=== PATIENT | female | born 1950 | race Caucasian/White ===

== ENCOUNTER 2019-06-23 18:18 | Inpatient (IN) | payer MEDICARE ==
[~2019-06-23] VITALS: Ht 167.6 cm; Wt 79.8 kg
[2019-06-23 19:34] LABS: BASOPHILS # (AUTO) 0.06 x10^3/uL (0-0.1); BASOPHILS % (AUTO) 1 % (0-1); EOSINOPHILS # (AUTO) 0.12 x10^3/uL (0-0.4); EOSINOPHILS % (AUTO) 1 % (1-7); LYMPHOCYTES # (AUTO) 2.79 x10^3/uL (1-3.4); LYMPHOCYTES % (AUTO) 25 % (22-44); MD MORPH REVIEW ONLY; MEAN CORPUSCULAR HEMOGLOBIN 21.6 pg (27.0-34.8); MEAN CORPUSCULAR VOLUME 76.2 fL (80-100); MEAN PLATELET VOLUME 6.8 fL (7.4-10.4); MONOCYTES # (AUTO) 1.02 x10^3/uL (0.2-0.8); MONOCYTES % (AUTO) 9 % (2-9); NEUTROPHILS % (AUTO) 64 % (42-75); PLATELET COUNT 481 x10^3/uL (130-400); RED BLOOD COUNT 4.61 x10^6/uL (3.82-5.3); RED CELL DISTRIBUTION WIDTH 18.6 % (9.6-15.2)
[2019-06-23 19:38] LABS: ALANINE AMINOTRANSFERASE 11 U/L (12-78); ALBUMIN 2.3 g/dL (3.4-5.0); ANION GAP 8 mmol/L (5-15); CALCIUM 8.7 mg/dL (8.5-10.1); CHLORIDE 107 mmol/L (98-107); CREATININE 0.74 mg/dL (0.55-1.02)
[2019-06-23 19:40] LABS: ALKALINE PHOSPHATASE 91 U/L (45-117); BILIRUBIN,TOTAL 0.3 mg/dL (0.2-1.0); TOTAL PROTEIN 6.7 g/dL (6.4-8.2)
[2019-06-23 19:46] LABS: MEAN CORPUSCULAR HGB CONC 28.3 g/dL (32.4-35.8)
[2019-06-23 19:47] LABS: ANISOCYTOSIS 1+; MICROCYTOSIS 1+
[2019-06-23 19:48] LABS: HYPOCHROMIA 2+; OVALOCYTES 1+; POLYCHROMASIA 1+
[2019-06-23 19:49] LABS: <PLATELET ESTIMATE> INCREASED; <PLT MORPHOLOGY> NORMAL PLT MORPH
[2019-06-23] MEDS ORDERED: SODIUM CHLORIDE 0.9% 1,000 ML IV ONE (19:51)
[2019-06-23] MEDS ORDERED: SODIUM CHLORIDE FLUSH 10ML SYR IVF ONE (20:00)
--- NOTE | 2019-06-23 20:02 | NUR ---
PT CAME IN CO OF ABD PAIN "I THINK I HAVE A SMALL BOWEL OBSTRUCTION". PT HAS A POSITIVE STOOL OCCULT TEST THAT WAS DONE BY MD AT BEDSIDE.
[2019-06-23 20:15] LABS: % IRON SATURATION 8 % (20-55); IRON LEVEL 18 mcg/dL (50-170); TOTAL IRON BINDING CAPACITY 215 mcg/dL (250-450)
[2019-06-23 20:16] LABS: INTERNATIONAL NORMALIZED RATIO 1.13 (0.93-1.1)
--- NOTE | 2019-06-23 20:26 | NUR ---
Janet earl in [facility] - 06/23/19 at 2041 by SEAN PT RESTING IN [facility]. REPORTS PAIN AND NAUSEA IMPROVEMENT
[2019-06-23 20:28] LABS: CULTURE INDICATED? YES; MICROSCOPIC INDICATED
--- NOTE | 2019-06-23 20:41 | NUR ---
PT IN CT AT THIS TIME
[2019-06-23] MEDS ORDERED: OMNIPAQUE 350 MG/ML, 100ML BOTTLE ONE (20:47)
--- NOTE | 2019-06-23 21:06 | NUR ---
PT RESTING IN [facility]. TALKING ON PHONE WITH . TBADM. EDUCATED ON PLAN OF CARE
[2019-06-23] MEDS ORDERED: LISI-170 PO (22:00)
[2019-06-23] MEDS ORDERED: LOVA40TA2 PO (22:00)
[2019-06-23] MEDS ORDERED: AMLO10TA8 PO (22:00)
[2019-06-23] MEDS ORDERED: ATEN50TA41 PO (22:00)
[2019-06-23] MEDS ORDERED: DIPH25CA61 PO (22:09)
[2019-06-23] MEDS ORDERED: ASPI325T17 PO (22:18)
[2019-06-23] MEDS ORDERED: OMEP20TA62 PO (22:20)
[2019-06-23 22:47] VITALS: BP 142/73
[2019-06-23] MEDS ORDERED: HYDROcodone/APAP 5/325 TABLET PO PRN (23:00)
[2019-06-23] MEDS ORDERED: ENOXAPARIN 40 MG/0.4 ML SQ SCH (23:00)
[2019-06-23] MEDS ORDERED: ACETAMINOPHEN 325 MG TABLET PO PRN (23:00)
[2019-06-23] MEDS ORDERED: DIPHENHYDRAMINE 25 MG CAPSULE PO SCH (23:00)
[2019-06-23] MEDS: LACTATED RINGERS 1,000 ML IV SCH (23:35)
[2019-06-23] MEDS: morphine SULFATE 10 MG/ML, 1ML IVPush PRN (23:35)
[2019-06-24 01:06] VITALS: BP 131/68
[2019-06-24] MEDS: morphine SULFATE 10 MG/ML, 1ML IVPush PRN ×3 (05:31→16:06)
[2019-06-24] MEDS: OMEPRAZOLE 20 MG CAPSULE.DR PO SCH (05:31)
[2019-06-24 06:34] LABS: ANION GAP 8 mmol/L (5-15); CHLORIDE 108 mmol/L (98-107); CREATININE 0.61 mg/dL (0.55-1.02)
[2019-06-24 07:16] LABS: MEAN CORPUSCULAR HEMOGLOBIN 21.7 pg (27.0-34.8); MEAN CORPUSCULAR HGB CONC 30.3 g/dL (32.4-35.8); MEAN CORPUSCULAR VOLUME 71.6 fL (80-100); PLATELET COUNT 440 x10^3/uL (130-400); RED BLOOD COUNT 4.72 x10^6/uL (3.82-5.3); RED CELL DISTRIBUTION WIDTH 17.1 % (9.6-15.2)
[2019-06-24 07:18] LABS: MD MORPH REVIEW ONLY
[2019-06-24 07:19] LABS: BASOPHILS # (AUTO) 0.02 x10^3/uL (0-0.1); BASOPHILS % (AUTO) 0 % (0-1); EOSINOPHILS # (AUTO) 0.12 x10^3/uL (0-0.4); EOSINOPHILS % (AUTO) 2 % (1-7); LYMPHOCYTES % (AUTO) 29 % (22-44); MONOCYTES # (AUTO) 0.77 x10^3/uL (0.2-0.8); MONOCYTES % (AUTO) 9 % (2-9); NEUTROPHILS # (AUTO) 4.86 x10^3/uL (1.8-6.8); NEUTROPHILS % (AUTO) 60 % (42-75)
[2019-06-24 07:20] LABS: ANISOCYTOSIS 2+; MICROCYTOSIS 1+; OVALOCYTES 2+
[2019-06-24 07:21] LABS: <PLATELET ESTIMATE> INCREASED; <PLT MORPHOLOGY> NORMAL PLT MORPH; HYPOCHROMIA 1+; POLYCHROMASIA 1+
[2019-06-24] MEDS ORDERED: POTASSIUM CHLORIDE 40 MEQ in SODIUM CHLORIDE 0.9% 500 ML IV ONE (08:00)
[2019-06-24] MEDS ORDERED: LISINOPRIL 20 MG TABLET PO SCH (09:00)
[2019-06-24] MEDS: LISINOPRIL 40 MG TABLET PO SCH (09:00)
[2019-06-24] MEDS ORDERED: AMLODIPINE 10 MG TAB PO SCH (09:00)
[2019-06-24] MEDS ORDERED: ATENOLOL 50 MG TABLET PO SCH (09:00)
[2019-06-24] MEDS: AMLODIPINE 10 MG TAB PO SCH (09:00)
[2019-06-24] MEDS: ATENOLOL 50 MG TABLET PO SCH ×2 (09:00→19:49)
[2019-06-24] MEDS: ASPIRIN 325 MG TABLET PO SCH (09:00)
[2019-06-24] MEDS: DIPHENHYDRAMINE 25 MG CAPSULE PO SCH (09:00)
[2019-06-24] MEDS ORDERED: OMNIPAQUE 350 MG/ML, 150 ML BOTTLE ONE (09:11)
[2019-06-24 10:43] VITALS: BP 139/73
[2019-06-24] MEDS ORDERED: CEFTRIAXONE PMX 1GM/50ML 50 ML IV ONE (12:00)
[2019-06-24] MEDS: LACTATED RINGERS 1,000 ML IV SCH (12:50)
[2019-06-24 14:20] VITALS: BP 139/64
[2019-06-24] MEDS ORDERED: GADOTERATE 10 MMOL/20 ML VIAL ONE (16:00)
[2019-06-24 19:11] VITALS: BP 147/70
[2019-06-24] MEDS: ONDANSETRON 2MG/ML, 2ML IVPush PRN (19:19)
[2019-06-24] MEDS: METRONIDAZOLE PMX 500MG/100ML 100 ML IV SCH (19:49)
[2019-06-24] MEDS: LOVASTATIN 40 MG TABLET PO SCH (19:49)
[2019-06-24] MEDS ORDERED: GOLYTELY 4,000ML ORAL.SOL PO ONE (22:30)
[2019-06-25] MEDS: morphine SULFATE 10 MG/ML, 1ML IVPush PRN (00:46)
[2019-06-25 00:51] VITALS: BP 122/68
[2019-06-25] MEDS: METRONIDAZOLE PMX 500MG/100ML 100 ML IV SCH ×2 (03:07→16:03)
[2019-06-25] MEDS: LACTATED RINGERS 1,000 ML IV SCH ×2 (03:08→21:49)
[2019-06-25] MEDS: OMEPRAZOLE 20 MG CAPSULE.DR PO SCH (03:58)
[2019-06-25 05:39] LABS: BASOPHILS # (AUTO) 0.02 x10^3/uL (0-0.1); BASOPHILS % (AUTO) 0 % (0-1); EOSINOPHILS # (AUTO) 0.11 x10^3/uL (0-0.4); EOSINOPHILS % (AUTO) 2 % (1-7); LYMPHOCYTES # (AUTO) 1.84 x10^3/uL (1-3.4); LYMPHOCYTES % (AUTO) 32 % (22-44); MD NO; MEAN CORPUSCULAR HEMOGLOBIN 21.7 pg (27.0-34.8); MEAN CORPUSCULAR HGB CONC 30.4 g/dL (32.4-35.8); MEAN CORPUSCULAR VOLUME 71.3 fL (80-100); MEAN PLATELET VOLUME 7.1 fL (7.4-10.4); MONOCYTES # (AUTO) 0.55 x10^3/uL (0.2-0.8); MONOCYTES % (AUTO) 10 % (2-9); NEUTROPHILS # (AUTO) 3.19 x10^3/uL (1.8-6.8); NEUTROPHILS % (AUTO) 56 % (42-75); PLATELET COUNT 369 x10^3/uL (130-400); RED BLOOD COUNT 4.28 x10^6/uL (3.82-5.3); RED CELL DISTRIBUTION WIDTH 16.8 % (9.6-15.2)
[2019-06-25 05:48] LABS: ALBUMIN 2.2 g/dL (3.4-5.0); ANION GAP 5 mmol/L (5-15); CALCIUM 8.9 mg/dL (8.5-10.1); CHLORIDE 110 mmol/L (98-107)
[2019-06-25] MEDS: ONDANSETRON 2MG/ML, 2ML IVPush PRN ×2 (09:07→21:53)
[2019-06-25] MEDS: ASPIRIN 325 MG TABLET PO SCH (09:07)
[2019-06-25] MEDS: ATENOLOL 50 MG TABLET PO SCH ×2 (09:07→23:08)
[2019-06-25] MEDS: DIPHENHYDRAMINE 25 MG CAPSULE PO SCH (09:15)
[2019-06-25] MEDS: LISINOPRIL 40 MG TABLET PO SCH (09:15)
[2019-06-25] MEDS: AMLODIPINE 10 MG TAB PO SCH (09:15)
[2019-06-25 10:07] VITALS: BP 115/53
[2019-06-25] MEDS ORDERED: CHLORHEXIDINE 15 ML UDC ONE (10:49)
[2019-06-25] MEDS ORDERED: FENTANYL PF 250 MCG/5ML ONE (11:42)
[2019-06-25] MEDS ORDERED: CEFAZOLIN 1,000 MG ONE (12:03)
[2019-06-25] MEDS ORDERED: SUCCINYLCHOLINE 20 MG/ML, 10ML ONE (12:03)
[2019-06-25] MEDS ORDERED: GLYCOPYRROLATE 0.2MG/1ML, 5ML ONE (12:03)
[2019-06-25] MEDS ORDERED: ROCURONIUM 10MG/ML,5ML ONE (12:03)
[2019-06-25] MEDS ORDERED: ONDANSETRON 2MG/ML, 2ML ONE (12:03)
[2019-06-25] MEDS ORDERED: EPHEDRINE 50 MG/ML, 1ML ONE (12:03)
[2019-06-25] MEDS ORDERED: PROPOFOL 10 MG/ML, 20ML ONE (12:03)
[2019-06-25] MEDS ORDERED: DEXAMETHASONE 4 MG/ML, 1ML ONE (12:03)
[2019-06-25] MEDS ORDERED: NEOSTIGMINE 1 MG/ML, 10ML ONE (12:03)
[2019-06-25] MEDS ORDERED: OXYcodone 5 MG/5 ML ORAL.SOL UDC PO PRN (12:30)
[2019-06-25] MEDS ORDERED: hydrALAzine 20 MG/ML, 1ML IV PRN (12:30)
[2019-06-25] MEDS ORDERED: PROMETHAZINE 25 MG/ML, 1ML IV PRN (12:30)
[2019-06-25] MEDS ORDERED: ACETAMINOPHEN 325 MG TABLET PO PRN (12:30)
[2019-06-25] MEDS ORDERED: PROMETHAZINE 25 MG SUPP PR PRN (12:30)
[2019-06-25] MEDS ORDERED: ONDANSETRON ODT 8 MG PO PRN (12:30)
[2019-06-25] MEDS ORDERED: LABETALOL 5MG/ML, 20ML IV PRN (12:30)
[2019-06-25] MEDS ORDERED: FENTANYL PF 100 MCG/2ML IV PRN (12:30)
[2019-06-25] MEDS ORDERED: ONDANSETRON 2MG/ML, 2ML IV PRN (12:30)
[2019-06-25] MEDS ORDERED: CEFTRIAXONE PMX 2GM/50ML 50 ML IV SCH (13:00)
[2019-06-25] MEDS ORDERED: SUGAMMADEX 200 MG/2 ML IVPush ONE (13:46)
[2019-06-25] MEDS ORDERED: FENTANYL PF 100 MCG/2ML ONE (13:48)
[2019-06-25] MEDS ORDERED: OXYcodone 5 MG/5 ML ORAL.SOL UDC ONE (14:11)
[2019-06-25] MEDS ORDERED: HYDROmorphone 2 MG/ML, 1ML ONE (14:11)
[2019-06-25] MEDS: HYDROmorphone 2 MG/ML, 1ML IVPush PRN ×2 (14:15→14:37)
[2019-06-25] MEDS ORDERED: OXYcodone ORAL.CONC 20 MG/ML PO PRN (15:30)
[2019-06-25] MEDS: GABAPENTIN 300 MG CAPSULE PO SCH ×2 (16:00→23:07)
[2019-06-25 16:08] VITALS: BP 118/70
[2019-06-25 17:46] VITALS: BP 119/68
[2019-06-25] MEDS: OXYcodone 5 MG/5 ML ORAL.SOL UDC PO PRN (19:37)
[2019-06-25 19:47] VITALS: BP 117/65
[2019-06-25] MEDS: LOVASTATIN 40 MG TABLET PO SCH (23:05)
[2019-06-25] MEDS: ACETAMINOPHEN 500 MG TABLET PO SCH (23:07)
[2019-06-26] MEDS: METRONIDAZOLE PMX 500MG/100ML 100 ML IV SCH ×2 (00:04→08:31)
[2019-06-26 00:08] VITALS: BP 134/73
[2019-06-26 04:10] VITALS: BP 120/72
[2019-06-26] MEDS: ACETAMINOPHEN 500 MG TABLET PO SCH ×4 (05:00→23:00)
[2019-06-26 05:21] LABS: MEAN CORPUSCULAR HGB CONC 30.7 g/dL (32.4-35.8); MEAN CORPUSCULAR VOLUME 71.7 fL (80-100); MEAN PLATELET VOLUME 6.7 fL (7.4-10.4); PLATELET COUNT 354 x10^3/uL (130-400); RED BLOOD COUNT 3.93 x10^6/uL (3.82-5.3); RED CELL DISTRIBUTION WIDTH 17.5 % (9.6-15.2)
[2019-06-26 05:28] LABS: ALANINE AMINOTRANSFERASE 12 U/L (12-78); ALBUMIN 1.9 g/dL (3.4-5.0); ANION GAP 8 mmol/L (5-15); CALCIUM 8.5 mg/dL (8.5-10.1); CHLORIDE 106 mmol/L (98-107); CREATININE 0.58 mg/dL (0.55-1.02)
[2019-06-26 05:31] LABS: ALKALINE PHOSPHATASE 67 U/L (45-117); BILIRUBIN,TOTAL 0.5 mg/dL (0.2-1.0); TOTAL PROTEIN 5.6 g/dL (6.4-8.2)
[2019-06-26 05:39] LABS: BASOPHILS # (AUTO) 0.02 x10^3/uL (0-0.1); BASOPHILS % (AUTO) 0 % (0-1); EOSINOPHILS # (AUTO) 0.16 x10^3/uL (0-0.4); EOSINOPHILS % (AUTO) 2 % (1-7); LYMPHOCYTES # (AUTO) 1.89 x10^3/uL (1-3.4); LYMPHOCYTES % (AUTO) 18 % (22-44); MD SCAN; MONOCYTES # (AUTO) 0.68 x10^3/uL (0.2-0.8); MONOCYTES % (AUTO) 7 % (2-9); NEUTROPHILS # (AUTO) 7.69 x10^3/uL (1.8-6.8); NEUTROPHILS % (AUTO) 74 % (42-75)
[2019-06-26] MEDS: OXYcodone 5 MG/5 ML ORAL.SOL UDC PO PRN (05:49)
[2019-06-26] MEDS: OMEPRAZOLE 20 MG CAPSULE.DR PO SCH (05:49)
[2019-06-26 06:38] VITALS: BP 148/76
[2019-06-26] MEDS: LACTATED RINGERS 1,000 ML IV SCH ×2 (08:30→17:58)
[2019-06-26] MEDS: LISINOPRIL 40 MG TABLET PO SCH (08:32)
[2019-06-26] MEDS: DIPHENHYDRAMINE 25 MG CAPSULE PO SCH (08:32)
[2019-06-26] MEDS: DOCUSATE 100 MG CAPSULE PO SCH ×2 (08:33→21:06)
[2019-06-26] MEDS: ATENOLOL 50 MG TABLET PO SCH ×2 (08:33→21:07)
[2019-06-26] MEDS: GABAPENTIN 300 MG CAPSULE PO SCH ×3 (08:33→21:07)
[2019-06-26] MEDS: AMLODIPINE 10 MG TAB PO SCH (08:33)
[2019-06-26] MEDS: ASPIRIN 325 MG TABLET PO SCH (08:33)
[2019-06-26] MEDS: POLYETHYLENE GLYCOL 17 GM PACKET PO SCH (08:35)
[2019-06-26] MEDS: ENOXAPARIN 40 MG/0.4 ML SQ SCH (08:35)
[2019-06-26] MEDS ORDERED: ACETAMINOPHEN 325 MG TABLET PO PRN (12:00)
[2019-06-26] MEDS ORDERED: KETOROLAC 30 MG/1 ML IM PRN (12:00)
[2019-06-26 12:37] VITALS: BP 101/57
[2019-06-26] MEDS: ONDANSETRON 2MG/ML, 2ML IVPush PRN (13:29)
[2019-06-26] MEDS ORDERED: OXYcodone 5 MG/5 ML ORAL.SOL UDC PO PRN (15:30)
[2019-06-26 20:24] VITALS: BP 124/70
[2019-06-26] MEDS: LOVASTATIN 40 MG TABLET PO SCH (21:06)
[2019-06-27 01:47] VITALS: BP 115/67
[2019-06-27] MEDS: LACTATED RINGERS 1,000 ML IV SCH (04:07)
[2019-06-27 04:34] LABS: BASOPHILS # (AUTO) 0.01 x10^3/uL (0-0.1); BASOPHILS % (AUTO) 0 % (0-1); EOSINOPHILS # (AUTO) 0.01 x10^3/uL (0-0.4); EOSINOPHILS % (AUTO) 0 % (1-7); LYMPHOCYTES # (AUTO) 1.57 x10^3/uL (1-3.4); LYMPHOCYTES % (AUTO) 10 % (22-44); MD NO; MEAN CORPUSCULAR HEMOGLOBIN 21.8 pg (27.0-34.8); MEAN CORPUSCULAR HGB CONC 30.5 g/dL (32.4-35.8); MEAN CORPUSCULAR VOLUME 71.4 fL (80-100); MONOCYTES # (AUTO) 0.87 x10^3/uL (0.2-0.8); MONOCYTES % (AUTO) 6 % (2-9); NEUTROPHILS # (AUTO) 12.62 x10^3/uL (1.8-6.8); NEUTROPHILS % (AUTO) 84 % (42-75); PLATELET COUNT 396 x10^3/uL (130-400); RED BLOOD COUNT 4.51 x10^6/uL (3.82-5.3); RED CELL DISTRIBUTION WIDTH 17.8 % (9.6-15.2)
[2019-06-27 04:40] LABS: ALBUMIN 2.2 g/dL (3.4-5.0); ANION GAP 7 mmol/L (5-15); CALCIUM 8.5 mg/dL (8.5-10.1); CHLORIDE 107 mmol/L (98-107); CREATININE 0.59 mg/dL (0.55-1.02)
[2019-06-27] MEDS: ACETAMINOPHEN 500 MG TABLET PO SCH ×2 (04:43→10:13)
[2019-06-27] MEDS: OMEPRAZOLE 20 MG CAPSULE.DR PO SCH (05:56)
[2019-06-27 07:17] VITALS: BP 115/69
[2019-06-27] MEDS: POLYETHYLENE GLYCOL 17 GM PACKET PO SCH ×2 (09:00→14:55)
[2019-06-27] MEDS ORDERED: FLUTICASONE NASAL SPRAY 16GM NAS SCH (09:00)
[2019-06-27] MEDS ORDERED: LORATADINE 10 MG TABLET PO SCH (09:00)
[2019-06-27] MEDS ORDERED: GADOTERATE 7.5 MMOL/15 ML SYR ONE (09:29)
[2019-06-27] MEDS: LISINOPRIL 40 MG TABLET PO SCH (10:13)
[2019-06-27] MEDS: AMLODIPINE 10 MG TAB PO SCH (10:13)
[2019-06-27] MEDS: GABAPENTIN 300 MG CAPSULE PO SCH (10:14)
[2019-06-27] MEDS: ATENOLOL 50 MG TABLET PO SCH (10:14)
[2019-06-27] MEDS: DOCUSATE 100 MG CAPSULE PO SCH (10:15)
[2019-06-27] MEDS: ASPIRIN 325 MG TABLET PO SCH (11:14)
[2019-06-27] MEDS: ENOXAPARIN 40 MG/0.4 ML SQ SCH (11:14)
[2019-06-27 13:03] LABS: CULTURE INDICATED? YES; MICROSCOPIC INDICATED
[2019-06-27] MEDS ORDERED: DOCU100C33 PO (15:34)
[2019-06-27] MEDS ORDERED: LORA-247 PO (15:34)
[2019-06-27] MEDS ORDERED: ACET325T26 PO (15:34)
[2019-06-27] MEDS ORDERED: POLY17PO5 PO (15:34)
[2019-06-27] MEDS ORDERED: ONDA4TAB7 PO (15:34)
[2019-06-27] MEDS ORDERED: ENOX40SY5 SUBD (15:34)
[2019-06-27] MEDS ORDERED: OXYC5SOL8 PO (15:34)
[2019-06-27] MEDS ORDERED: LACTATED RINGERS 1,000 ML IV SCH (23:00)
== END 2019-06-27 15:24 | disposition left against medical advice (07) | DRG 329 ==
LOC: ED 20:29 → EDIP 21:41 → 3N 21:48
PROVIDERS: ADMIT Family Medicine; ATTEND Family Medicine
PROC: 0D1N0Z4 Bypass Sigmoid Colon to Cutaneous, Open Approach (ICD-10-PCS; 2019-06-25)
PROC: 0UT70ZZ Resection of Bilateral Fallopian Tubes, Open Approach (ICD-10-PCS; 2019-06-25)
PROC: 0DBP8ZX Excision of Rectum, Via Natural or Artificial Opening Endoscopic, Diagnostic (ICD-10-PCS; 2019-06-25)
PROC: 0UT20ZZ Resection of Bilateral Ovaries, Open Approach (ICD-10-PCS; principal; 2019-06-25 11:00)
DX: C18.9 Malignant neoplasm of colon, unspecified (principal); E43 Unspecified severe protein-calorie malnutrition; C19 Malignant neoplasm of rectosigmoid junction; C79.62 Secondary malignant neoplasm of left ovary; C78.01 Secondary malignant neoplasm of right lung; C78.02 Secondary malignant neoplasm of left lung; N39.0 Urinary tract infection, site not specified; D72.829 Elevated white blood cell count, unspecified; I25.10 Atherosclerotic heart disease of native coronary artery without angina pectoris; D50.9 Iron deficiency anemia, unspecified; Z80.1 Family history of malignant neoplasm of trachea, bronchus and lung; E66.9 Obesity, unspecified; E78.00 Pure hypercholesterolemia, unspecified; E78.5 Hyperlipidemia, unspecified; F17.210 Nicotine dependence, cigarettes, uncomplicated; I10 Essential (primary) hypertension; I25.2 Old myocardial infarction; I65.23 Occlusion and stenosis of bilateral carotid arteries; J30.2 Other seasonal allergic rhinitis; J44.9 Chronic obstructive pulmonary disease, unspecified; K21.9 Gastro-esophageal reflux disease without esophagitis; K14.8 Other diseases of tongue; R29.810 Facial weakness; R79.1 Abnormal coagulation profile; Z66 Do not resuscitate; Z22.330 Carrier of Group B streptococcus; Z79.4 Long term (current) use of insulin; E10.9 Type 1 diabetes mellitus without complications; Z83.71 Family history of colonic polyps; Z95.5 Presence of coronary angioplasty implant and graft; Z95.1 Presence of aortocoronary bypass graft; Z88.1 Allergy status to other antibiotic agents; Z88.2 Allergy status to sulfonamides; Z82.49 Family history of ischemic heart disease and other diseases of the circulatory system; Z80.43 Family history of malignant neoplasm of testis; Z83.6 Family history of other diseases of the respiratory system; Z68.28 Body mass index [BMI] 28.0-28.9, adult
CPT/HCPCS: 36415; 70491; 70553; 71045; 71260; 72197; 74177; 80048; 80053; 81001; 82040; 82378; 83540; 83550; 83690; 85025; 85610; 86304; 87086; 87147; 88305; 88341; 88342; 99285; C1729; G0378; J0690; J0696; J1100; J1170; J1650; J1885; J2405; J2704; J2710; J3010; Q9967; A9575; C1765; C1769; J0330; J2270; J7030; J7120; Q0163